=== PATIENT | male | born 1985 ===

== ENCOUNTER 2017-12-30 07:54 | Emergency (ER) | payer BC ==
[2017-12-30 08:10] VITALS: BP 116/82
[2017-12-30] MEDS ORDERED: Clindamycin CAP* 150 MG PO ONE (08:11)
[2017-12-30] MEDS ORDERED: Amoxicillin/Clavulanate TAB* 875 MG PO ONE (08:12)
--- NOTE | 2017-12-30 08:13 | UC ---
Throat Pain/Nasal Josiah HPI - HPI Summary HPI Summary: 32 yo WM c/o sore throat associated with f/c and B/L ear pains x 2 days - History of Current Complaint Stated Complaint: SORE THROAT Time Seen by Provider: 12/30/17 08:01 Hx Obtained From: Patient Onset/Duration: Gradual Onset Severity: Moderate Cough: None Associated Signs & Symptoms: Positive: Fever - Allergies/Home Medications Allergies/Adverse Reactions: Allergies Allergy/AdvReac Type Severity Reaction Status Date / Time No Known Allergies Allergy Verified 12/30/17 08:10 Home Medications: Home Medications Mv-Min/Vit C/Glut/Lysine/Hb124 [Airborne Effervescent Tablet] 1 tab PO BID 12/30 [History Confirmed 12/30/17] Phenylephrine/Dm/Acetaminop/GG [Tylenol Cold-Flu Severe Caplet] 2 tab PO BID PRN 12/30/17 [History Confirmed 12/30/17] PMH/Surg Hx/FS Hx/Imm Hx - Additional Past Medical History Additional PMH: none Previously Healthy: Yes - Surgical History Surgical History: Yes Surgery Procedure, Year, and Place: RT TESTICULAR CYST REMOVAL 2003 Review of Systems Constitutional: Fever, Chills Skin: Negative Eyes: Negative ENT: Sore Throat, Ear Ache Respiratory: Negative Cardiovascular: Negative Gastrointestinal: Negative Genitourinary: Negative Motor: Negative Neurovascular: Negative Musculoskeletal: Negative Neurological: Negative Psychological: Negative All Other Systems Reviewed And Are Negative: Yes Physical Exam Triage Information Reviewed: Yes Appearance: Well-Nourished, Pain Distress Vital Signs Reviewed: Yes Eye Exam: Normal ENT: Positive: TM dull, Tonsillar swelling, Tonsillar exudate Dental Exam: Normal Neck exam: Normal Neck: Positive: Tenderness @ - B/L posterior auricular and anterior cervical LAD , Enlarged Nodes @ Respiratory Exam: Normal Cardiovascular Exam: Normal Abdominal Exam: Normal Musculoskeletal Exam: Normal Neurological Exam: Normal Psychological Exam: Normal Skin Exam: Normal Throat Pain/Nasal Course/Dx - Course Course Of Treatment: rapid strep postive - Differential Dx/Diagnosis Provider Diagnoses: strep pharyngitis Discharge - Sign-Out/Discharge Documenting (check all that apply): Discharge/Admit/Transfer - Discharge Plan Condition: Stable Disposition: HOME Referrals: No Primary Care Phys,NOPCP [Primary Care Provider] - - Billing Disposition and Condition Condition: STABLE Disposition: HOME
== END 2017-12-30 08:20 | disposition home or self-care (01) ==
LOC: UCEAST 07:54
DX: J02.0 Streptococcal pharyngitis (principal); H92.03 Otalgia, bilateral
CPT/HCPCS: 87651; 99212; A9270-GY; G0463